=== PATIENT | male | born 1945 | race Caucasian/White ===

== ENCOUNTER 2017-09-29 09:03 | Emergency (ER) | payer MEDICARE, OTHER ==
--- NOTE | 2017-09-29 10:24 | RAD ---
HISTORY: cough , fever COMPARISONS: March 28, 2015 VIEWS: 5: Frontal dual-energy and lateral views of the chest. FINDINGS: CARDIOMEDIASTINAL SILHOUETTE: The aorta is tortuous. The cardiomediastinal silhouette is otherwise unremarkable. JANET: The janet are normal. PLEURA: The costophrenic angles are sharp. No pleural abnormalities are noted. LUNG PARENCHYMA: There is patchy alveolar opacification of the right middle lobe. ABDOMEN: The upper abdomen is clear. There is no subphrenic gas. BONES AND SOFT TISSUES: No bone or soft tissue abnormalities are noted. OTHER: None. IMPRESSION: PATCHY RIGHT MIDDLE LOBE CONSOLIDATION. RECOMMEND FOLLOW-UP UNTIL RESOLUTION TO EXCLUDE UNDERLYING PULMONARY PARENCHYMAL PATHOLOGY.
--- NOTE | 2017-09-29 10:26 | UC ---
Respiratory Complaint HPI - HPI Summary HPI Summary: cough x 1 day cough is productive, yellow sputum, getting worse this morning + fever, chills, body aches and fatigue , + sob - History of Current Complaint Chief Complaint: UCGeneralIllness Stated Complaint: FEVER,ACHES Time Seen by Provider: 09/29/17 09:37 Hx Obtained From: Patient Onset/Duration: Gradual Onset, Lasting Days - 1, Still Present Timing: Constant Severity Initially: Moderate Severity Currently: Moderate Pain Intensity: 10 Character: Cough: Productive - yellow Aggravating Factors: Exertion, Deep Breaths Alleviating Factors: Nothing Associated Signs And Symptoms: Positive: Dyspnea, Fever, Chills. Negative: Pleuritic Chest Pain, Wheezing, Hemoptysis, Dizziness, Calf Pain, Calf Swelling , Edema, URI, Nasal Congestion, Hoarseness - Allergies/Home Medications Allergies/Adverse Reactions: Allergies Allergy/AdvReac Type Severity Reaction Status Date / Time Penicillins Allergy Syncope Verified 09/29/17 09:51 Home Medications: Home Medications Acetaminophen TAB* [Tylenol TAB*] 650 mg PO Q4H PRN 09/29/17 [History Confirmed 09/29/17] Calcium Carbonate/Vitamin D3 [Calcium 600-Vit D3 800 Caplet] 1 each PO DAILY [History Confirmed 09/29/17] Ibuprofen TAB* [Advil TAB*] 600 mg PO Q6H PRN 09/29/17 [History Confirmed ] PMH/Surg Hx/FS Hx/Imm Hx - Additional Past Medical History Additional PMH: Dyslipidemia - Surgical History Surgical History: Yes Surgery Procedure, Year, and Place: Left TKA, ~, [place]; Left Leg Vein Stripping, ~1983 2000, [place] [facility] [place] - Family History Known Family History: Positive: Hypertension - Social History Alcohol Use: None Substance Use Type: None Smoking Status (MU): Former Smoker Length of Time of Smoking/Using Tobacco: Some Day use When Did the Patient Quit Smoking/Using Tobacco: ~ - Immunization History Most Recent Influenza Vaccination: November 2015 Review of Systems Constitutional: Fever, Chills, Fatigue Skin: Negative Eyes: Negative ENT: Negative Respiratory: Shortness Of Breath, Cough Is Patient Immunocompromised?: No All Other Systems Reviewed And Are Negative: Yes Physical Exam Triage Information Reviewed: Yes Appearance: Ill-Appearing Vital Signs: Initial Vital Signs Temp 100.9 F 09/29/17 09:46 Pulse 103 09/29/17 09:46 Resp 29 09/29/17 09:46 BP 148/89 09/29/17 09:46 Pulse Ox 96 09/29/17 09:46 Vital Signs Reviewed: Yes Eye Exam: Normal ENT: Positive: Normal ENT inspection, Hearing grossly normal, Pharynx normal Neck: Positive: Supple Respiratory: Positive: No respiratory distress, No accessory muscle use, Crackles - right lower lungs Cardiovascular: Positive: Tachycardia Abdominal Exam: Normal Abdomen Description: Positive: Soft Musculoskeletal Exam: Normal Neurological Exam: Normal Skin Exam: Normal UC Diagnostic Evaluation - Laboratory O2 Sat by Pulse Oximetry: 96 Diagnostic Studies Comment: chest xray: IMPRESSION: PATCHY RIGHT MIDDLE LOBE CONSOLIDATION. RECOMMEND FOLLOW-UP UNTIL RESOLUTION TO EXCLUDE. UNDERLYING PULMONARY PARENCHYMAL PATHOLOGY. Respiratory Course/Dx - Differential Dx/Diagnosis Provider Diagnoses: right middle lobe pneumonia Discharge - Sign-Out/Discharge Documenting (check all that apply): Patient Departure - Discharge Plan Condition: Stable Disposition: HOME Prescriptions: DOXYcycline CAP(*) [DOXYcycline 100MG CAP(*)] 100 mg PO BID #20 cap Patient Education Materials: Community Acquired Pneumonia (ED) Referrals: Alex Rousseau MD [Primary Care Provider] - 7 Days - Billing Disposition and Condition Condition: STABLE Disposition: Home
[2017-09-29 10:55] VITALS: BP 153/84
== END 2017-09-29 10:42 | disposition home or self-care (01) ==
LOC: UCCORT 09:03
DX: J18.9 Pneumonia, unspecified organism (principal); Z87.891 Personal history of nicotine dependence; Z88.0 Allergy status to penicillin
CPT/HCPCS: 71046; 99212; G0463